=== PATIENT | female | born 1960 | race Hispanic/Latino ===

== ENCOUNTER 2021-05-03 05:33 | Observation (INO) | payer BC ==
[2021-05-02 11:24] LABS: BASOPHILS % (AUTO) 0.3 % (0.0-5.0); EOSINOPHILS % (AUTO) 4.4 % (0.0-8.0); LYMPHOCYTES % (AUTO) 34.6 % (21.0-51.0); MEAN CORPUSCULAR HEMOGLOBIN 32.2 pg (27.0-33.0); MEAN CORPUSCULAR HGB CONC 32.8 g/dL (32.0-36.0); NEUTROPHILS % (AUTO) 53.2 % (40.0-77.0); PLATELET COUNT (AUTO) 255 K/uL (130-400); RED BLOOD CELL COUNT(AUTO) 3.98 MIL/uL (4.00-5.50); WHITE BLOOD COUNT (AUTO) 6.4 K/uL (4.8-10.8)
[2021-05-02 16:36] VITALS: BP 103/74
[2021-05-03] VITALS (25 sets, daily range): BP systolic 104–143; BP diastolic 57–82
[~2021-05-03] VITALS: Ht 172.7 cm; Wt 94.7 kg
[~2021-05-03 05:33] MED LIST: MULT-1367 PO
[2021-05-03] MEDS ORDERED: CEFAZOLIN SODIUM 1 GM VIAL ONE (05:53)
[2021-05-03] MEDS ORDERED: LACTATED RINGERS 1000ML 1,000 ML IV ONE (05:53)
[2021-05-03] MEDS: CEFAZOLIN SODIUM 1 GM VIAL IVP ONE ×2 (06:32→07:27)
[2021-05-03] MEDS ORDERED: ROCURONIUM 10MG/1ML SYR 10 MG/ML ML ONE (06:40)
[2021-05-03] MEDS ORDERED: LIDOCAINE PF 100MG/5ML (2%) SYRINGE 5ML ONE (06:40)
[2021-05-03] MEDS ORDERED: SUCCINYLCHOLINE CHLORIDE 20 MG/ML 10 ML VIAL ONE (06:40)
[2021-05-03] MEDS ORDERED: FENTANYL CITRATE PF 50 MCG/1 ML 2ML VIAL ONE (06:40)
[2021-05-03] MEDS ORDERED: PROPOFOL 10 MG/ML 20ML VIAL IV ONE (06:40)
[2021-05-03] MEDS ORDERED: GLYCOPYRROLATE 1 MG/5 ML SYRINGE ONE ×2 (07:17→08:43)
[2021-05-03] MEDS ORDERED: LACTATED RINGERS 1000ML 1,000 ML IV SCH (08:00)
[2021-05-03] MEDS ORDERED: NEOSTIGMINE 5MG/5ML SYR IV ONE (08:36)
[2021-05-03] MEDS ORDERED: ONDANSETRON 4MG INJ ONE ×2 (08:38→09:32)
[2021-05-03] MEDS ORDERED: MEPERIDINE-PF 25 MG/ML SYG ONE (09:07)
[2021-05-03] MEDS ORDERED: BISACODYL 10 MG SUPP.RECT RC PRN (10:00)
[2021-05-03] MEDS ORDERED: SIMETHICONE 80 MG TAB.CHEW PO PRN (10:00)
[2021-05-03] MEDS ORDERED: IBUPROFEN 600 MG TABLET PO PRN (10:00)
[2021-05-03] MEDS ORDERED: DOCUSATE SODIUM 100 MG CAP PO PRN (10:00)
[2021-05-03] MEDS ORDERED: ONDANSETRON 4MG INJ IVP PRN (10:00)
[2021-05-03] MEDS ORDERED: PROMETHAZINE HCL 25 MG/ML 1ML AMPULE IM PRN (10:00)
[2021-05-03] MEDS ORDERED: ACETAMINOPHEN WITH CODEINE 1 TAB TAB PO PRN (10:00)
[2021-05-03] MEDS: DEXTROSE 5 %-0.45 % NACL 1,000 ML IV PRN ×2 (10:24→17:13)
[2021-05-03] MEDS: PROMETHAZINE HCL 25 MG/ML 1ML AMPULE IM PRN ×2 (10:30→17:12)
[2021-05-03] MEDS: MEPERIDINE-PF 75 MG/ML SYG IM PRN ×2 (10:35→17:13)
[2021-05-04] MEDS: DEXTROSE 5 %-0.45 % NACL 1,000 ML IV PRN (01:14)
[2021-05-04 03:33] VITALS: BP 99/56
[2021-05-04 06:23] LABS: HEMATOCRIT 35.1 % (36-48); MEAN CORPUSCULAR HGB CONC 32.8 g/dL (32.0-36.0); MEAN CORPUSCULAR VOLUME 97.8 fL (79-99); RED BLOOD CELL COUNT(AUTO) 3.59 MIL/uL (4.00-5.50); WHITE BLOOD COUNT (AUTO) 8.8 K/uL (4.8-10.8)
[2021-05-04 07:22] VITALS: BP 138/69
[2021-05-04] MEDS ORDERED: HYDROCODONE/ACETAMINOPHEN 5/325 MG TAB PO PRN (08:00)
[2021-05-04] MEDS ORDERED: ACETAMINOPHEN WITH CODEINE 1 TAB TAB PO PRN (08:00)
[2021-05-04] MEDS ORDERED: NITROFURANTOIN MONOHYD/M-CRYST 100 MG CAPSULE PO SCH (09:00)
[2021-05-04] MEDS: IBUPROFEN 800 MG TAB PO PRN ×2 (09:18→15:50)
[2021-05-04 11:25] VITALS: BP 92/55
[2021-05-04] MEDS ORDERED: ACET1TAB25 PO (11:40)
[2021-05-04] MEDS ORDERED: NITR100C4 PO (11:40)
[2021-05-04 15:09] VITALS: BP 111/54
== END 2021-05-04 18:00 | disposition home or self-care (01) ==
LOC: DAH 05:33 → WSH 05:34
PROVIDERS: ADMIT Obstetrics & Gynecology; ATTEND Obstetrics & Gynecology
DX: N81.10 Cystocele, unspecified (principal); Z20.822 Contact with and (suspected) exposure to COVID-19; E11.65 Type 2 diabetes mellitus with hyperglycemia; Z90.710 Acquired absence of both cervix and uterus; Z98.51 Tubal ligation status; Z79.899 Other long term (current) drug therapy; Z98.890 Other specified postprocedural states
CPT/HCPCS: 36415 ×2; 57240; 85025; 85027; 86850; 86900; 86901; 87635; 88302; 96361 ×2; 96372; 96374; 96376; A4215; A4221; A4222; A4223; A4344; A4351; A4600; A4606; A4663; C1771; C9803; G0168; G0378 ×34; J0330; J0690; J2001; J2175 ×3; J2405 ×3; J2550 ×2; J2704; J2710; J3010; J3490 ×2; J7120 ×2

== ENCOUNTER → 2023-08-27 | Outpatient (CLI) | payer BC ==
[~2023-08-27] MED LIST changes: +ACET-2079 PO; +NITR100C4 PO
== END | disposition home or self-care (01) ==
LOC: RAH 14:47
PROVIDERS: ATTEND Obstetrics & Gynecology
DX: Z12.31 Encounter for screening mammogram for malignant neoplasm of breast (principal); N63.20 Unspecified lump in the left breast, unspecified quadrant
CPT/HCPCS: 77067

== ENCOUNTER → 2023-09-24 | Outpatient (CLI) | payer BC | END | disposition home or self-care (01) | LOC: RAH 13:32 | PROVIDERS: ATTEND Obstetrics & Gynecology | DX: R92.322 Mammographic fibroglandular density, left breast (principal); R92.8 Other abnormal and inconclusive findings on diagnostic imaging of breast | CPT/HCPCS: 76641; 77065 ==